=== PATIENT | male | born 1965 | race Caucasian/White ===

== ENCOUNTER 2019-04-19 20:45 | Inpatient (IN) | payer OTHER, SELFPAY ==
[2019-04-28 13:26] VITALS: BMI 25.7
== END 2019-04-28 17:59 | DRG 45 ==
PROVIDERS: Admitting Provider Internal Medicine; Emergency Provider Emergency Medicine; PCP Emergency Medicine; Visit Provider Family Medicine
DX: I63.20 Cerebral infarction due to unspecified occlusion or stenosis of unspecified precerebral arteries (principal); G81.91 Hemiplegia, unspecified affecting right dominant side; E87.6 Hypokalemia; E87.1 Hypo-osmolality and hyponatremia; E86.0 Dehydration; I10 Essential (primary) hypertension; F10.20 Alcohol dependence, uncomplicated; F17.210 Nicotine dependence, cigarettes, uncomplicated; F41.9 Anxiety disorder, unspecified; F03.90 Unspecified dementia, unspecified severity, without behavioral disturbance, psychotic disturbance, mood disturbance, and anxiety; R27.0 Ataxia, unspecified; R45.851 Suicidal ideations; J30.9 Allergic rhinitis, unspecified; S40.811A Abrasion of right upper arm, initial encounter; X58.XXXA Exposure to other specified factors, initial encounter; L40.50 Arthropathic psoriasis, unspecified
CPT/HCPCS: 36415; 70450; 70553; 71046; 73090; 73120; 80048; 80053; 80061; 80307; 81001; 82607; 82746; 83735; 84484; 85025; 85027; 85610; 85730; 87081; 92610; 93005; 93312; 93320; 93325; 93880; 94640; 96361; 96374; 96375; 97110; 97161; 97535; 99285; A9270; A9577; C8929; J1100; J1630; J3411; J3420; J3480; J7030; J7040; Q9957